=== PATIENT | female | born 1965 | race Hispanic/Latino ===

== ENCOUNTER 2020-04-20 14:11 | Emergency (ER) | payer SELFPAY ==
[~2020-04-20] VITALS: Ht 167.6 cm; Wt 64.9 kg
--- NOTE | 2020-04-20 15:04 | Emergency Department Note ---
History of Present Illnes History of Present Illness Chief Complaint: COVID PUI History of Present Illness This is a 54 year old female arrived to the complaints of cough for several weeks and generalized malaise. Chief Complaint Comment PATIENT IN FROM HOME WITH COMPLAINTS OF COUGH AND SHORTNESS OF BREATH X 5 WEEKS; PATIENT STATES SHE IS HERE FOR COVID TESTING. PATIENT O2 SATS 100% ON ROOM AIR, RESP EVEN AND NONLABORED Historian: Patient Arrival Mode: Car Onset (how long ago): week(s) Severity: mild Duration (how long): week(s) Progression: unchanged Chronicity: new Relieving factors: none Exacerbating factors: none Past Medical/Family History Physician Review I have reviewed the patient's past medical and family history. Any updates have been documented here. Past Medical History Recent Fever: No Clinical Suspicion of Infectio: Yes New/Unexplained Change in Ment: No Past Medical History: Hypertension, Diabetes Past Surgical History: Appendectomy, Hysterectomy, Other Surgery: CARPAL TUNNEL SURGERY Social History Smoking Cessation: Current some day smoker Counseling Performed: No Alcohol Use: Social Any Illegal Drug Use: No TB Exposure/Symptoms: No Physically hurt or threatened: No Review of Systems Review of Systems Constitutional: Reports as per HPI EENTM: Reports no symptoms Cardiovascular: Reports no symptoms Respiratory: Reports as per HPI, Reports chest congestion, Reports cough Gastrointestinal: Reports no symptoms Genitourinary: Reports no symptoms Musculoskeletal: Reports no symptoms Integumentary: Reports no symptoms Neurological: Reports no symptoms Psychological: Reports no symptoms Endocrine: Reports no symptoms Hematological/Lymphatic: Reports no symptoms Physical Exam Related Data Allergies: Coded Allergies: fluconazole (Verified Allergy, Severe, 04/20/20) Triage Vital Signs Vital Signs Date Time Temp Pulse Resp B/P (MAP) Pulse Ox O2 Delivery O2 Flow Rate FiO2 04/20/20 14:20 97.0 87 20 197/74 100 Room Air Vital signs reviewed: Yes Physical Exam CONSTITUTIONAL Constitutional: Present well-developed, Present well-nourished HENT HENT: Present normocephalic, Present atraumatic, Present oropharynx clear/moist, Present nose normal HENT L/R: Present left ext ear normal, Present right ext ear normal EYES Eyes: Reports PERRL, Reports conjunctivae normal NECK Neck: Present ROM normal PULMONARY Pulmonary: Present effort normal, Present breath sounds normal CARDIOVASCULAR Cardiovascular: Present regular rhythm, Present heart sounds normal, Present capillary refill normal, Present normal rate GASTROINTESTINAL Abdominal: Present soft, Present nontender, Present bowel sounds normal GENITOURINARY Genitourinary: Present exam deferred SKIN Skin: Present warm, Present dry MUSCULOSKELETAL Musculoskeletal: Present ROM normal NEUROLOGICAL Neurological: Present alert, Present oriented x 3, Present no gross motor or sensory deficits PSYCHOLOGICAL Psychological: Present mood/affect normal, Present judgement normal Assessment & Plan Medical Decision Making MDM 54-year-old well-appearing female arrives to the ED with complaints of cough fever loss of taste and smell. Patient is clinically presenting with signs and symptoms consistent with Covid 19. Patient informed she is positive until proven otherwise. Patient's oxygen saturation remained 99% even on exertion, no evidence of tachypnea or dyspnea noted in the ED. Spoke present length about the importance of sleeping on her stomach and rotating from side to side. Z-Malachi given, signs and symptoms for return discussed. In the light of the Covid pandemic, disaster medicine care was given- patient understands why she was not tested for Covid 19 in the ED, no indications for a chest x-ray at this time given normal oxygen saturation and respiratory status. Assessment & Plan Final Impression: (1) COVID-19 Depart Disposition: HOME, SELF-CARE Last Vital Signs Date Time Temp Pulse Resp B/P (MAP) Pulse Ox O2 Delivery O2 Flow Rate FiO2 04/20/20 14:20 97.0 87 20 197/74 100 Room Air SHO PATTERSON DO Apr 20, 2020 15:04
== END 2020-04-20 14:30 | disposition home or self-care (01) ==
LOC: ER 14:22
DX: U07.1 COVID-19 (principal); R05 Cough; R53.81 Other malaise; I10 Essential (primary) hypertension; E11.9 Type 2 diabetes mellitus without complications; F17.210 Nicotine dependence, cigarettes, uncomplicated
CPT/HCPCS: 99282

== ENCOUNTER 2024-10-16 18:09 | Inpatient (IN) | payer MEDICARE, SELFPAY ==
[~2024-10-16] VITALS: Ht 167.6 cm; Wt 74.8 kg
[2024-10-16] MEDS: ONDANSETRON HCL INJ 2MG/ML 2ML 2 MG/ML VIAL IV STA (19:35)
[2024-10-16] MEDS: CLINDAMYCIN 600MG / 50ML 50 ML IV ONE (19:35)
[2024-10-16] MEDS: Morphine 4mg INJECTION 4 MG/ML INJ IV ONE (19:35)
[2024-10-16] MEDS ORDERED: HYDRALAZINE HCL 20 MG/ML VIAL IV PRN (20:30)
[2024-10-16] MEDS: HYDRALAZINE HCL 20 MG/ML VIAL IV STA (20:36)
[2024-10-16 22:21] VITALS: TEMP 98.5
[2024-10-17] VITALS (10 sets, daily range): BP systolic 141–203; BP diastolic 53–71; PULSE 76–81; RESP 16–28; TEMP 97.9–98.8; O2SAT 92–98
[2024-10-17] MEDS: ONDANSETRON HCL INJ 2MG/ML 2ML 2 MG/ML VIAL IV PRN ×2 (00:19→08:35)
[2024-10-17] MEDS: Morphine 2mg Syringe 2 MG/ML SYR IV PRN (00:19)
[2024-10-17] MEDS ORDERED: Morphine 4mg INJECTION 4 MG/ML INJ IV PRN (01:45)
[2024-10-17] MEDS ORDERED: ALBUTEROL/IPRATROPIUM 3 ML NEB NEB PRN (01:45)
[2024-10-17] MEDS ORDERED: DIPHENHYDRAMINE HCL 25 MG CAP PO PRN (01:45)
[2024-10-17] MEDS ORDERED: MELATONIN 5 MG TABLET PO PRN (01:45)
[2024-10-17] MEDS ORDERED: SIMETHICONE 80 MG CHEW PO PRN (01:45)
[2024-10-17] MEDS ORDERED: DOCUSATE SODIUM 100 MG CAP PO PRN (01:45)
[2024-10-17] MEDS ORDERED: DEXTROSE 50% SYRINGE 50 ML IV PRN (01:45)
[2024-10-17] MEDS ORDERED: LIDOCAINE 4% PATCH TP PRN (01:45)
[2024-10-17] MEDS ORDERED: ACETAMINOPHEN 325 MG TAB PO PRN (01:45)
[2024-10-17] MEDS ORDERED: DICYCLOMINE HCL10 MG PO (03:58)
[2024-10-17] MEDS ORDERED: CYCLOBENZAPRINE5 MG PO (03:58)
[2024-10-17] MEDS ORDERED: PROTONIX40 MG PO (03:58)
[2024-10-17] MEDS ORDERED: BUMETANIDE2 MG PO (03:58)
[2024-10-17] MEDS ORDERED: NIFEDIPINE ER90 MG PO (03:58)
[2024-10-17] MEDS ORDERED: GABAPENTIN300 MG PO (03:58)
[2024-10-17 04:44] LABS: BASOPHILS % 0.4 % (0.0-1.0); EOSINOPHILS # (AUTO) 0.1 (0.0-0.4); HEMATOCRIT 29.1 % (34.2-44.1); LYMPHOCYTES % 9.5 % (18.0-39.1); MEAN CORPUSCULAR HEMOGLOBIN 31.2 pg (28-32); MEAN CORPUSCULAR HGB CONC 32.3 g/dL (31-35); MEAN CORPUSCULAR VOLUME 96.7 fL (81-99); MONOCYTES # (AUTO) 1.4 (0.2-0.8); MONOCYTES % 12.8 % (4.4-11.3); NEUTROPHILS % 75.5 % (38.7-80.0); PLATELET COUNT 201 x10e3/uL (140-360); RED BLOOD COUNT 3.01 x10e6/uL (3.6-5.1); WHITE BLOOD COUNT 10.55 x10e3/uL (4.8-10.8)
[2024-10-17 04:47] LABS: HEMOGLOBIN 9.4 g/dL (12.0-16.0)
[2024-10-17 05:07] LABS: CALCIUM 8.5 mg/dL (8.4-10.2); CREATININE, SERUM 5.73 mg/dL (0.57-1.11); PHOSPHORUS 6.2 MG/DL (2.3-4.7)
[2024-10-17 05:27] LABS: THYROID STIMULATING HORMONE 1.628 uIU/mL (0.350-4.940)
[2024-10-17] MEDS ORDERED: IOPAMIDOL 370 MG/ML 100 ML INFUS..BTL INJ ONE ×3 (05:55→06:45)
[2024-10-17] MEDS: PANTOPRAZOLE SOD 40 MG TABEC PO SCH (08:35)
[2024-10-17] MEDS ORDERED: LOMOTIL TABLET1 EACH PO (08:43)
[2024-10-17] MEDS: SODIUM CHLORIDE 0.9% 250ML 250 ML ONE (09:15)
[2024-10-17] MEDS: Morphine 4mg INJECTION 4 MG/ML INJ IV PRN (11:13)
[2024-10-17] MEDS ORDERED: OZEMPIC0.25 MG/02 SQ (11:21)
[2024-10-17] MEDS: CLINDAMYCIN 600MG / 50ML 50 ML IV SCH (11:32)
[2024-10-17] MEDS: CLOPIDOGREL BISULFATE 75 MG TAB PO ONE (18:18)
[2024-10-17] MEDS: Vancomycin IV 1 GM in SODIUM CHLORIDE 0.9% 250ML 250 ML IV ONE (18:19)
[2024-10-17] MEDS: LOPERAMIDE HCL 2 MG CAP PO PRN (21:34)
[2024-10-17] MEDS: HYDRALAZINE HCL 20 MG/ML VIAL IV PRN (21:34)
[2024-10-18] VITALS (14 sets, daily range): BP systolic 109–218; BP diastolic 58–78; PULSE 72–88; RESP 14–20; TEMP 97.6–99; O2SAT 93–99
[2024-10-18 05:24] LABS: BASOPHILS # (AUTO) 0.1 (0.0-0.1); BASOPHILS % 0.3 % (0.0-1.0); EOSINOPHILS # (AUTO) 0.1 (0.0-0.4); EOSINOPHILS % 0.4 % (0.0-6.0); HEMATOCRIT 30.9 % (34.2-44.1); HEMOGLOBIN 9.7 g/dL (12.0-16.0); LYMPHOCYTES # (AUTO) 0.5 (1.0-3.2); LYMPHOCYTES % 3.2 % (18.0-39.1); MEAN CORPUSCULAR HGB CONC 31.4 g/dL (31-35); MEAN CORPUSCULAR VOLUME 95.7 fL (81-99); MONOCYTES # (AUTO) 1.5 (0.2-0.8); MONOCYTES % 10.1 % (4.4-11.3); NEUTROPHILS # (AUTO) 12.2 (2.1-6.9); NEUTROPHILS % 85.1 % (38.7-80.0); PLATELET COUNT 229 x10e3/uL (140-360); RED BLOOD COUNT 3.23 x10e6/uL (3.6-5.1); RED CELL DISTRIBUTION WIDTH 15.7 % (11.7-14.4); WHITE BLOOD COUNT 14.35 x10e3/uL (4.8-10.8)
[2024-10-18 05:44] LABS: INR 1.01; PROTHROMBIN TIME 13.9 seconds (11.9-14.5)
[2024-10-18 05:55] LABS: ALBUMIN 2.7 g/dL (3.5-5.0); ALBUMIN/GLOBULIN RATIO 0.6 (0.8-2.0); ANION GAP 21.7 mmol/L (8-16); BILIRUBIN,TOTAL 0.5 mg/dL (0.2-1.2); CALCIUM 8.4 mg/dL (8.4-10.2); CHOL/HDL RATIO 2.9 (3.0-3.6); CREATININE, SERUM 6.89 mg/dL (0.57-1.11); POTASSIUM 4.7 mmol/L (3.5-5.1); TOTAL PROTEIN 6.9 g/dL (6.5-8.1)
[2024-10-18 06:16] LABS: THYROID STIMULATING HORMONE 1.909 uIU/mL (0.350-4.940)
[2024-10-18] MEDS: SEVELAMER CARBONATE 800 MG TAB PO SCH (08:00)
[2024-10-18] MEDS ORDERED: HYDROCODONE/APAP 5MG-325MG TAB PO PRN (12:15)
[2024-10-18] MEDS: HEPARIN SOD/SOD CHLORIDE 2,000 ML ONE (12:50)
[2024-10-18] MEDS: LIDOCAINE HCL 1% 30ML-PF VIAL ONE (12:50)
[2024-10-18] MEDS: IOPAMIDOL 370 MG/ML 100 ML INFUS..BTL INJ ONE (12:50)
[2024-10-18] MEDS: BIVALRIUDIN 250 MG/VIAL VIAL IV ONE (12:51)
[2024-10-18] MEDS: HEPARIN SOD (PORCINE) 1000 UNIT/ML 30ML ONE (12:51)
[2024-10-18] MEDS: NITROGLYCERIN/D5W 200 MCG/ML 250 ML ONE (12:51)
[2024-10-18] MEDS: SODIUM CHLORIDE 0.9% 1000ML 2,000 ML ONE (12:51)
[2024-10-18] MEDS: VERAPAMIL HCL 2.5 MG/ML 2 ML VIAL ONE ×2 (12:51→12:52)
[2024-10-18] MEDS: ALTEPLASE RECOMBINANT 2 MG/2 ML VIAL ONE ×2 (12:52)
[2024-10-18] MEDS: MIDAZOLAM HCL 2 MG/2 ML VIAL ONE ×2 (12:52)
[2024-10-18] MEDS: FENTANYL CITRATE/PF 100MCG/2 ML INJ ONE (12:52)
[2024-10-18] MEDS: ASPIRIN 325 MG TAB ONE (12:53)
[2024-10-18] MEDS: CLOPIDOGREL BISULFATE 75 MG TAB ONE (12:53)
[2024-10-18] MEDS: ONDANSETRON HCL INJ 2MG/ML 2ML 2 MG/ML VIAL IV PRN (13:00)
[2024-10-18] MEDS: Morphine 2mg Syringe 2 MG/ML SYR IV PRN (13:01)
[2024-10-18] MEDS ORDERED: Vancomycin IV 500 MG in SODIUM CHLORIDE 0.9% 100 ML IV SCH (18:00)
[2024-10-18] MEDS: NIFEDIPINE CR 30 MG TAB PO SCH (21:29)
[2024-10-18] MEDS: Vancomycin IV 500 MG in SODIUM CHLORIDE 0.9% 100 ML IV SCH (21:29)
[2024-10-19] VITALS (13 sets, daily range): BP systolic 151–182; BP diastolic 50–89; PULSE 71–87; RESP 18–20; TEMP 98–98.7; O2SAT 91–100
[2024-10-19] MEDS: HYDROMORPHONE 1MG/1ML INJ IV PRN ×2 (08:34→12:45)
[2024-10-19] MEDS: HYDROMORPHONE 1MG/1ML INJ IV ONE (09:39)
[2024-10-19] MEDS: CLOPIDOGREL BISULFATE 75 MG TAB PO SCH (10:47)
[2024-10-19] MEDS: ASPIRIN 325 MG TAB PO SCH (10:47)
[2024-10-19 11:10] LABS: CALCIUM 7.7 mg/dL (8.7-10.2)
[2024-10-19] MEDS: ASPIRIN 81 MG ENTERIC COATED PO SCH (11:30)
[2024-10-19] MEDS: CARVEDILOL 12.5 MG TAB PO SCH (16:54)
[2024-10-19] MEDS ORDERED: HYDRALAZINE HC100 MG PO (16:57)
[2024-10-19] MEDS: HYDRALAZINE HCL 100 MG TABLET PO SCH (17:24)
[2024-10-19] MEDS: ATORVASTATIN 20 MG TAB PO SCH (20:35)
[2024-10-20] VITALS (9 sets, daily range): BP systolic 134–166; BP diastolic 46–68; PULSE 68–101; RESP 18–20; TEMP 97–98.6; O2SAT 90–100
[2024-10-20 05:57] LABS: BASOPHILS % 0.3 % (0.0-1.0); EOSINOPHILS # (AUTO) 0.2 (0.0-0.4); HEMATOCRIT 29.2 % (34.2-44.1); HEMOGLOBIN 9.2 g/dL (12.0-16.0); LYMPHOCYTES # (AUTO) 0.7 (1.0-3.2); LYMPHOCYTES % 6.4 % (18.0-39.1); MEAN CORPUSCULAR HEMOGLOBIN 30.3 pg (28-32); MEAN CORPUSCULAR HGB CONC 31.5 g/dL (31-35); MEAN CORPUSCULAR VOLUME 96.1 fL (81-99); MONOCYTES # (AUTO) 1.2 (0.2-0.8); MONOCYTES % 10.6 % (4.4-11.3); NEUTROPHILS # (AUTO) 9.1 (2.1-6.9); NEUTROPHILS % 79.6 % (38.7-80.0); PLATELET COUNT 225 x10e3/uL (140-360); RED BLOOD COUNT 3.04 x10e6/uL (3.6-5.1); RED CELL DISTRIBUTION WIDTH 15.7 % (11.7-14.4); WHITE BLOOD COUNT 11.49 x10e3/uL (4.8-10.8)
[2024-10-20 06:21] LABS: ANION GAP 19.8 mmol/L (8-16); CALCIUM 8.2 mg/dL (8.4-10.2); CREATININE, SERUM 6.36 mg/dL (0.57-1.11); POTASSIUM 4.8 mmol/L (3.5-5.1)
[2024-10-20] MEDS ORDERED: SODIUM CHLORIDE 0.9% 1000ML 2,000 ML IV PRN (11:00)
[2024-10-20] MEDS: ASPIRIN 81 MG ENTERIC COATED PO SCH (17:07)
[2024-10-21] VITALS (11 sets, daily range): BP systolic 147–203; BP diastolic 49–69; PULSE 76–85; RESP 18–20; TEMP 98–98.3; O2SAT 93–100
[2024-10-21 06:03] LABS: BASOPHILS # (AUTO) 0.1 (0.0-0.1); BASOPHILS % 0.4 % (0.0-1.0); EOSINOPHILS # (AUTO) 0.2 (0.0-0.4); EOSINOPHILS % 1.3 % (0.0-6.0); HEMATOCRIT 30.8 % (34.2-44.1); HEMOGLOBIN 9.6 g/dL (12.0-16.0); LYMPHOCYTES # (AUTO) 0.7 (1.0-3.2); MEAN CORPUSCULAR HEMOGLOBIN 30.7 pg (28-32); MEAN CORPUSCULAR HGB CONC 31.2 g/dL (31-35); MEAN CORPUSCULAR VOLUME 98.4 fL (81-99); MONOCYTES # (AUTO) 1.4 (0.2-0.8); NEUTROPHILS # (AUTO) 11.7 (2.1-6.9); NEUTROPHILS % 82.3 % (38.7-80.0); PLATELET COUNT 227 x10e3/uL (140-360); RED BLOOD COUNT 3.13 x10e6/uL (3.6-5.1); RED CELL DISTRIBUTION WIDTH 15.7 % (11.7-14.4); WHITE BLOOD COUNT 14.26 x10e3/uL (4.8-10.8)
[2024-10-21 06:25] LABS: ANION GAP 19.9 mmol/L (8-16); CALCIUM 8.9 mg/dL (8.4-10.2); CREATININE, SERUM 4.37 mg/dL (0.57-1.11); POTASSIUM 3.9 mmol/L (3.5-5.1)
[2024-10-21] MEDS: LISINOPRIL 10 MG TAB PO ONE (15:37)
[2024-10-21] MEDS: HYDROCODONE/APAP 5MG-325MG TAB PO PRN (15:38)
[2024-10-22] VITALS (8 sets, daily range): BP systolic 157–184; BP diastolic 56–89; PULSE 73–84; RESP 18–20; TEMP 97.7–98.7; O2SAT 95–100
[2024-10-22] MEDS: SODIUM CHLORIDE 0.9% 1000ML 1,000 ML ONE (08:10)
[2024-10-22] MEDS: LISINOPRIL 10 MG TAB PO SCH (09:00)
[2024-10-22] MEDS ORDERED: FENTANYL CITRATE/PF 100MCG/2 ML INJ ONE (12:16)
[2024-10-22] MEDS ORDERED: MIDAZOLAM HCL 2 MG/2 ML VIAL ONE ×2 (12:16→12:18)
[2024-10-22] MEDS ORDERED: PROPOFOL IV EMULSION 10 MG/ML 20 ML VIAL ONE (12:17)
[2024-10-22] MEDS ORDERED: ONDANSETRON HCL INJ 2MG/ML 2ML 2 MG/ML VIAL ONE (12:19)
[2024-10-22] MEDS ORDERED: LIDOCAINE HCL 2% LOCAL INJ 5 ML SDV VIAL INJ ONE (12:19)
[2024-10-22] MEDS ORDERED: DEXAMETHASONE SOD PHOS INJ 4 MG/ML SDV ONE (12:19)
[2024-10-22] MEDS ORDERED: ACETAMINOPHEN 1000 MG/100 ML 100 ML IV ONE (12:40)
[2024-10-22] MEDS ORDERED: EPHEDRINE SULFATE INJ 50 MG/ML VIAL ONE (13:08)
[2024-10-22] MEDS: FENTANYL CITRATE/PF 100MCG/2 ML INJ ONE (14:15)
[2024-10-22] MEDS: LISINOPRIL 10 MG TAB PO ONE (17:05)
[2024-10-22 17:29] LABS: HEPATITIS B SURFACE AG (P) Negative (Negative)
[2024-10-22] MEDS ORDERED: DEXTROSE 50% SYRINGE 50 ML IV PRN (19:45)
[2024-10-22] MEDS: INSULIN LISPRO 100 UNIT/1 ML 3ML VIAL SQ SCH (21:03)
[2024-10-23] VITALS (7 sets, daily range): BP systolic 152–179; BP diastolic 53–58; PULSE 20–79; RESP 18–23; TEMP 97.6–98.3; O2SAT 96–100
[2024-10-23 05:42] LABS: BASOPHILS # (AUTO) 0.1 (0.0-0.1); BASOPHILS % 0.5 % (0.0-1.0); EOSINOPHILS # (AUTO) 0.3 (0.0-0.4); EOSINOPHILS % 1.8 % (0.0-6.0); LYMPHOCYTES # (AUTO) 1.3 (1.0-3.2); LYMPHOCYTES % 8.4 % (18.0-39.1); MEAN CORPUSCULAR HEMOGLOBIN 30.1 pg (28-32); MONOCYTES # (AUTO) 1.3 (0.2-0.8); MONOCYTES % 8.4 % (4.4-11.3); NEUTROPHILS # (AUTO) 12.1 (2.1-6.9); NEUTROPHILS % 79.7 % (38.7-80.0); PLATELET COUNT 285 x10e3/uL (140-360); RED BLOOD COUNT 2.99 x10e6/uL (3.6-5.1); RED CELL DISTRIBUTION WIDTH 15.4 % (11.7-14.4); WHITE BLOOD COUNT 15.18 x10e3/uL (4.8-10.8)
[2024-10-23 06:11] LABS: ANION GAP 21.9 mmol/L (8-16); CALCIUM 9.1 mg/dL (8.4-10.2); CREATININE, SERUM 6.3 mg/dL (0.57-1.11); POTASSIUM 3.9 mmol/L (3.5-5.1)
[2024-10-23] MEDS: LISINOPRIL 20 MG TAB PO SCH (08:56)
[2024-10-23] MEDS: DICYCLOMINE HCL 10 MG CAP PO SCH (13:08)
[2024-10-23] MEDS: GABAPENTIN 100 MG CAP PO SCH (15:24)
[2024-10-24] VITALS (8 sets, daily range): BP systolic 101–193; BP diastolic 52–75; PULSE 80–85; RESP 19–21; TEMP 97.8–98.8; O2SAT 95–100
[2024-10-24 05:06] LABS: BASOPHILS # (AUTO) 0.1 (0.0-0.1); BASOPHILS % 0.6 % (0.0-1.0); EOSINOPHILS # (AUTO) 0.3 (0.0-0.4); HEMATOCRIT 30.9 % (34.2-44.1); HEMOGLOBIN 9.6 g/dL (12.0-16.0); LYMPHOCYTES # (AUTO) 0.8 (1.0-3.2); LYMPHOCYTES % 5.7 % (18.0-39.1); MEAN CORPUSCULAR HEMOGLOBIN 29.9 pg (28-32); MEAN CORPUSCULAR HGB CONC 31.1 g/dL (31-35); MEAN CORPUSCULAR VOLUME 96.3 fL (81-99); MONOCYTES # (AUTO) 1.1 (0.2-0.8); MONOCYTES % 7.2 % (4.4-11.3); NEUTROPHILS # (AUTO) 12.3 (2.1-6.9); NEUTROPHILS % 83.6 % (38.7-80.0); PLATELET COUNT 322 x10e3/uL (140-360); RED BLOOD COUNT 3.21 x10e6/uL (3.6-5.1); RED CELL DISTRIBUTION WIDTH 15.3 % (11.7-14.4); WHITE BLOOD COUNT 14.69 x10e3/uL (4.8-10.8)
[2024-10-24 05:36] LABS: ANION GAP 17.8 mmol/L (8-16); CALCIUM 8.6 mg/dL (8.4-10.2); CREATININE, SERUM 4.79 mg/dL (0.57-1.11); POTASSIUM 3.8 mmol/L (3.5-5.1)
[2024-10-24] MEDS: DIPHENOXYLATE/ATROPINE TAB PO PRN (09:35)
[2024-10-25] VITALS (8 sets, daily range): BP systolic 158–182; BP diastolic 54–99; PULSE 64–85; RESP 17–20; TEMP 98.1–99.1; O2SAT 92–100
[2024-10-25 07:53] LABS: ANION GAP 15.2 mmol/L (8-16); CALCIUM 8.2 mg/dL (8.4-10.2); CREATININE, SERUM 5.45 mg/dL (0.57-1.11); POTASSIUM 4.2 mmol/L (3.5-5.1)
[2024-10-25] MEDS: LISINOPRIL 20 MG TAB PO SCH (09:00)
[2024-10-25] MEDS ORDERED: ALBUMIN 25% 12.5GM 0.25 GM/ML BTL IV PRN (10:15)
[2024-10-26] VITALS (10 sets, daily range): BP systolic 153–182; BP diastolic 57–70; PULSE 80–89; RESP 16–20; TEMP 97.6–98.7; O2SAT 95–100
[2024-10-26 07:31] LABS: BASOPHILS # (AUTO) 0.1 (0.0-0.1); BASOPHILS % 0.6 % (0.0-1.0); EOSINOPHILS # (AUTO) 0.2 (0.0-0.4); EOSINOPHILS % 1.6 % (0.0-6.0); HEMATOCRIT 27.6 % (34.2-44.1); HEMOGLOBIN 8.6 g/dL (12.0-16.0); LYMPHOCYTES # (AUTO) 0.8 (1.0-3.2); MEAN CORPUSCULAR HEMOGLOBIN 30.5 pg (28-32); MEAN CORPUSCULAR HGB CONC 31.2 g/dL (31-35); MEAN CORPUSCULAR VOLUME 97.9 fL (81-99); MONOCYTES # (AUTO) 1.3 (0.2-0.8); MONOCYTES % 9.7 % (4.4-11.3); NEUTROPHILS # (AUTO) 10.8 (2.1-6.9); NEUTROPHILS % 81.2 % (38.7-80.0); PLATELET COUNT 271 x10e3/uL (140-360); RED BLOOD COUNT 2.82 x10e6/uL (3.6-5.1); RED CELL DISTRIBUTION WIDTH 15.4 % (11.7-14.4); WHITE BLOOD COUNT 13.35 x10e3/uL (4.8-10.8)
[2024-10-26 08:06] LABS: ANION GAP 16.2 mmol/L (8-16); CALCIUM 8.3 mg/dL (8.4-10.2); POTASSIUM 4.2 mmol/L (3.5-5.1)
[2024-10-26] MEDS: HYDRALAZINE HCL 100 MG TABLET PO SCH (15:02)
[2024-10-26] MEDS: CLOPIDOGREL BISULFATE 75 MG TAB PO ONE (15:02)
[2024-10-26] MEDS: HYDROMORPHONE 1MG/1ML INJ IV PRN (15:56)
[2024-10-26] MEDS: BENZONATATE 100 MG CAP PO PRN (20:42)
[2024-10-27 04:00] VITALS: BP 143/60; PULSE 81; RESP 18; TEMP 98.3; O2SAT 97
[2024-10-27 06:17] VITALS: PULSE 82; RESP 20; O2SAT 97
[2024-10-27 07:19] LABS: ANION GAP 17.1 mmol/L (8-16); CALCIUM 8.6 mg/dL (8.4-10.2); CREATININE, SERUM 5.24 mg/dL (0.57-1.11); POTASSIUM 5.1 mmol/L (3.5-5.1)
[2024-10-27 08:00] VITALS: BP 167/60; PULSE 85; RESP 18; TEMP 97.8; O2SAT 100
[2024-10-27 12:00] VITALS: BP 163/64; PULSE 79; RESP 18; TEMP 97.5; O2SAT 100
[2024-10-27] MEDS: Vancomycin IV 500 MG in SODIUM CHLORIDE 0.9% 100 ML IV SCH (15:28)
[2024-10-27 15:58] VITALS: BP 160/89; PULSE 84; RESP 18; TEMP 97.6; O2SAT 100
== END 2024-10-27 16:15 | DRG 239 ==
LOC: FSED 18:13 → ERHOLD 20:34 → IMCU 10-17 01:05 → MED/SURG 10-17 11:02
PROVIDERS: ADMIT Internal Medicine; ATTEND Internal Medicine
PROC: 047P3ZZ Dilation of Right Anterior Tibial Artery, Percutaneous Approach (ICD-10-PCS; 2024-10-18)
PROC: B41D1ZZ Fluoroscopy of Aorta and Bilateral Lower Extremity Arteries using Low Osmolar Contrast (ICD-10-PCS; 2024-10-18)
PROC: 5A1D70Z Performance of Urinary Filtration, Intermittent, Less than 6 Hours Per Day (ICD-10-PCS; 2024-10-18)
PROC: 0Y6M0ZB Detachment at Right Foot, Partial 2nd Ray, Open Approach (ICD-10-PCS; 2024-10-22)
PROC: 0Y6M0ZC Detachment at Right Foot, Partial 3rd Ray, Open Approach (ICD-10-PCS; 2024-10-22)
PROC: 0Y6M0ZD Detachment at Right Foot, Partial 4th Ray, Open Approach (ICD-10-PCS; 2024-10-22)
PROC: 0Y6M0ZF Detachment at Right Foot, Partial 5th Ray, Open Approach (ICD-10-PCS; 2024-10-22)
PROC: 0Y6M0Z9 Detachment at Right Foot, Partial 1st Ray, Open Approach (ICD-10-PCS; principal; 2024-10-22 12:31)
DX: E11.52 Type 2 diabetes mellitus with diabetic peripheral angiopathy with gangrene (principal); I12.0 Hypertensive chronic kidney disease with stage 5 chronic kidney disease or end stage renal disease; E11.22 Type 2 diabetes mellitus with diabetic chronic kidney disease; N18.6 End stage renal disease; L03.115 Cellulitis of right lower limb; L97.518 Non-pressure chronic ulcer of other part of right foot with other specified severity; I70.261 Atherosclerosis of native arteries of extremities with gangrene, right leg; E11.69 Type 2 diabetes mellitus with other specified complication; M86.9 Osteomyelitis, unspecified; E11.621 Type 2 diabetes mellitus with foot ulcer; E11.319 Type 2 diabetes mellitus with unspecified diabetic retinopathy without macular edema; E83.39 Other disorders of phosphorus metabolism; D63.1 Anemia in chronic kidney disease; Z99.2 Dependence on renal dialysis; E11.42 Type 2 diabetes mellitus with diabetic polyneuropathy; L03.031 Cellulitis of right toe; N63.10 Unspecified lump in the right breast, unspecified quadrant; M89.9 Disorder of bone, unspecified; E78.00 Pure hypercholesterolemia, unspecified; H54.8 Legal blindness, as defined in USA; Z90.49 Acquired absence of other specified parts of digestive tract; Z90.710 Acquired absence of both cervix and uterus; Z88.3 Allergy status to other anti-infective agents
CPT/HCPCS: 36217; 36415; 37211; 37228; 37229; 37232; 71045; 71275; 75625; 75716; 76536; 76937; 80048; 80053; 80061; 80076; 82948; 83036; 83605; 83735; 83970; 84100; 84443; 85025; 85610; 86706; 87040; 87340; 88305; 88307; 88311; 93925; 94799; 99152; 99153; 99284; C1724; C1725; C1760; C1769; C1887; C1894; J0360; J0583; J0692; J0696; J1100; J1171; J1644; J2003; J2250; J2270; J2405; J2997; J3370; J7030; J7050; Q9967